=== PATIENT | female | born 1970 | race Caucasian/White ===

== ENCOUNTER 2024-01-23 09:21 | Emergency (ER) | payer OTHER, SELFPAY ==
[2024-01-23 09:44] VITALS: BP 133/93; PULSE 73; RESP 16; TEMP 37.2; O2SAT 100
[2024-01-23 09:47] LABS: EDUAAPPEAR Clear; EDUABILI Negative; EDUABLOOD Negative; EDUACOLOR1 Yellow; EDUAGLUCOSE Negative; EDUAKETONE Negative; EDUALEUKO Negative; EDUANITRATE Negative; EDUAPH 8.5; EDUAPROTEIN Negative; EDUASPGRAVITY 1.015; EDUAUROBILI 0.2
--- NOTE | 2024-01-23 10:20 | ED.FEMALEGU ---
HPI - Female Genitourinary General Chief complaint: Urogenital-Female Stated complaint: urinary issue Time Seen by Provider: 01/23/24 09:55 Source: patient and RN notes reviewed Mode of arrival: ambulatory Limitations: no limitations History of Present Illness HPI Narrative: Patient presents today complaining of a 2 month history of foul odor after intercourse, mild dysuria, cloudy urine. Denies vaginal discharge, hematuria abdominal pain. She has taking cranberry pills without much relief. Related Data Allergies Allergy/AdvReac Type Severity Reaction Status Date / Time Penicillins Allergy Mild ???MOM Verified 01/23/24 09:39 TOLD HER Review of Systems Review of Systems: CONSTITUTIONAL: Denies body aches, fever, chills, or sweats. EYES: Denies visual changes, redness, or discharge. ENT: Denies rhinorrhea, congestion, sore throat, or otalgia. CARDIOVASCULAR: Denies chest pain, palpitations, or edema. RESPIRATORY: Denies cough or dyspnea. GASTROINTESTINAL: Denies abdominal pain, nausea, vomiting, or diarrhea. GENITOURINARY: Denies hematuria.+ dysuria, odor after intercourse, cloudy urine SKIN: Denies rash, itching, or wounds. MUSCULOSKELETAL: Denies back pain, joint pain, or myalgia. NEUROLOGIC: Denies headache, numbness, tingling, or weakness. PSYCH: Denies depression or anxiety. PMFSH Comments At time of signature, I have reviewed and agree with nursing past medical, surgical, social and family history unless otherwise noted. Please see nursing chart for further information. There is no relevant family history pertinent to the presenting complaint Exam Narrative: GENERAL: Well-appearing, well-nourished, and in no acute distress. HEAD: Normocephalic, atraumatic. EYES: EOMI. No redness or drainage. Conjunctivae normal. ENT: Mucous membranes pink and moist. NECK: Normal AROM. CHEST: No respiratory distress. : Retained tampon noted in vagina. Vagina and cervix appears normal after removal. Annual exam completed to ensure no additional tampons within the vagina. EXTREMITIES: Normal range of motion. No edema. SKIN: Warm, dry, no rash. Capillary refill normal. Normal skin turgor. NEURO: No focal deficits. Alert and oriented x3. Gait steady. PSYCH: Normal affect. No signs of depression or anxiety. Course Course Emergency Course: Initially, plan was to do a vaginal swab and test and treat for gonorrhea, chlamydia, Trichomonas. Patient states she recently got back with her ex. When speculum was placed in to patient's vagina, immediately a retained tampon was found and removed. Manual exam completed to ensure to other tampon was retained. Patient states it has been in her vagina for at least 3 weeks, since her last period. Will treat with clindamycin for possible infection. Recommend EDUCATIONAL PSYCHOLOGIST follow up as well. Level of Care: Express Care Visit Vital Signs Vital signs: Vital Signs Temperature 98.9 F 01/23/24 09:44 Pulse Rate 73 01/23/24 09:44 Respiratory Rate 16 01/23/24 09:44 Blood Pressure 133/93 H 01/23/24 09:44 Pulse Oximetry 100 01/23/24 09:44 Oxygen Delivery Room Air 01/23/24 09:44 Temperature 98.9 F 01/23/24 09:44 Pulse Rate 73 01/23/24 09:44 Respiratory Rate 16 01/23/24 09:44 Blood Pressure 133/93 H 01/23/24 09:44 Pulse Oximetry 100 01/23/24 09:44 Oxygen Delivery Room Air 01/23/24 09:44 Reviewed. MDM - Female Genitourinary MDM Narrative Medical decision making narrative: Patient's retained tampon removed. Placed on clindamycin. Additional labs cancelled. Recommed EDUCATIONAL PSYCHOLOGIST follow up as well. UA negative for infection. Anticipatory guidance given. Dose of rocephin given prior to discharge. Differential Diagnosis Differential diagnosis: Likely urinary tract infection, bacterial vaginosis, trichomoniasis, vaginitis, cystitis and other (gonorrhea, chlamydia.) Lab Data Attestation: I reviewed the patient's lab results. Labs: Lab Results
[2024-01-23] MEDS: cefTRIAXone 500 MG, LIDOCAINE HCL 1% LOCAL INJ 1 ML IM (10:33)
--- NOTE | 2024-01-23 14:23 | PC.NURSE ---
Tampon retrieved by [employer] during pelvic exam. Pt. forgot that she had placed it and approximates it has been there for 3 weeks.
== END 2024-01-23 10:51 | disposition home or self-care (01) ==
PROVIDERS: Emergency Provider Nurse Practitioner
DX: T19.2XXA Foreign body in vulva and vagina, initial encounter (principal); W44.8XXA Other foreign body entering into or through a natural orifice, initial encounter
CPT/HCPCS: 81003; 96372; 99214; G0463; J0696